=== PATIENT | male | born 1990 | race Caucasian/White ===

== ENCOUNTER 2017-03-30 19:06 | Emergency (ER) | payer BC ==
[~2017-03-30] VITALS: Ht 172.7 cm; Wt 75.7 kg
[2017-03-30 19:10] VITALS: BP 133/72; PULSE 76; TEMP 36.9; O2SAT 99; Ht 172.7 cm; Wt 75.7 kg
--- NOTE | 2017-03-31 23:10 | EMERGENCY ROOM VISIT NOTE ---
ED Visit Note First contact with patient: 19:16 Chief Complaint: A friend's dog bit my right forearm. History of Present Illness: Mr. Hadley is a 27-year-old white male who ambulates into the ED accompanied by female friend complaining of a dog bite to the anterior posterior aspect of the right hand. Patient reports approximately one hour ago he was with friends and he was bitten by his friends Radha Doty. He does not know what prompted the attack. He does report the friend's dog rabies immunizations are up-to-date. Prior to arrival at the hospital patient cleansed his wounds with peroxide. Associated with the injury patient reports he has having a burning pain over the anterior posterior aspect of the right forearm. He rates his discomfort 3/ 10. The pain is nonradiating. Pain worsens with palpation. He has not identified any alleviating factors related to the pain. He has not taken medication for pain prior to arrival at the hospital. He denies any associated symptoms including elbow pain, wrist pain, hand pain, hand weakness/numbness/ tingling. Review of Systems: As noted above in history of present illness. Past Medical History: Patient denies. Current Medications: Patient denies. Allergies to Medications: Patient denies. Social History: Patient is currently employed; he feels safe in his home environment; he denies tobacco use. Tetanus Immunization Status: Patient reports up-to-date. Physical Examination: Vital Signs: Date Time Temp Pulse Resp B/P (MAP) Pulse Ox O2 Delivery O2 Flow Rate FiO2 03/30/17 19:10 36.9 76 18 133/72 99 Room Air GENERAL: 27-year-old male in mild distress due to pain, nontoxic-appearing, afebrile and hemodynamically stable. NEUROLOGICAL: Awake, alert and oriented to person, place and time. Answering questions appropriately and following commands. SKIN: Warm, dry and pink. Right Forearm: Over the anterior posterior aspect of the right forearm patient has multiple puncture wounds from his dog bite. There is no active bleeding. There is minimal swelling throughout the arm. All of the puncture wounds are superficial or of medium depth and I do not feel any need to be sutured closed. There is no exposure of tenderness or muscle tissue. RIGHT UPPER EXTREMITY: No gross bony deformity. No tenderness in the elbow, wrist or hand. Soft tissue injury as noted above. Full range of motion in flexion and extension of the elbow, pronation and supination of forearm, flexion , extension and radial and ulnar deviation of the wrist and flexion and extension of all MCP, PIP and DIP joints. Throughout the arm and hand the skin was warm and pink and capillary refill is brisk. He was able to distinguish light sensations through all dermatomes of the hand. ED Course: Patient is assessed as noted above. Patient's medication list was reviewed. Patient was offered pain medication and refused. Patient's puncture wounds were cleansed with antibacterial soap and water and covered with a bacitracin dressing. Patient was educated about today's findings and instructed on his treatment plan ; he verbalized understanding and agreement with this plan. Clinical Impression: Dog bite right forearm. Disposition: Patient discharged home in stable condition accompanied by his girlfriend; prior to departure he was reassessed and subjectively reported he was feeling slightly better. Plan: Comfort measures, wound care and signs of infection were discussed with the patient. Patient was encouraged to follow-up with his PCP or return to the ED for any signs of infection, uncontrolled pain or any new/concerning symptoms.
== END 2017-03-30 20:04 | disposition home or self-care (01) ==
LOC: C.EDB 19:09 → C.EDD 20:04
DX: S51.851A Open bite of right forearm, initial encounter (principal); W54.0XXA Bitten by dog, initial encounter